=== PATIENT | male | born 1965 | race African-American/Black ===

== ENCOUNTER 2016-10-12 13:47 | Outpatient (CLI) | payer OTHER ==
--- NOTE | 2016-10-12 16:40 | RAD ---
TWO VIEWS OF THE RIGHT KNEE: 10/12/16 INDICATION: History of right knee pain and disability. COMPARISON: None. FINDINGS: There is moderate degenerative arthrosis of the right knee with moderate medial tibiofemoral joint c ompartmental narrowing. There are moderate osteophytes seen off the major compartments of the right knee. IMPRESSION: Moderate degenerative arthrosis right knee. POS: [facility]
== END 2016-10-12 13:48 | disposition home or self-care (01) ==
LOC: NAV RAD 13:47
PROVIDERS: ATTEND Family Medicine
DX: Z02.71 Encounter for disability determination (principal); M17.11 Unilateral primary osteoarthritis, right knee